=== PATIENT | male | born 1960 | race Caucasian/White ===

== ENCOUNTER → 2019-06-05 13:14 | Outpatient (CLI) | payer OTHER, SELFPAY ==
--- NOTE | 2019-06-05 | DI.US.S_ITS ---
PROCEDURE: US CAROTID DOPPLER BI INDICATIONS: DIPLOPIA TECHNIQUE: Color and pulse Doppler interrogation was performed of both carotid systems, with image documentation and velocity measurements. COMPARISON: None. FINDINGS: Stenosis calculations are based on SRU (S[employer] in Ul[employer]) criteria. Right side: Brachial blood pressure: 122/76 mm Hg. Common carotid artery peak systolic velocity: 87 cm/sec. Internal carotid artery peak systolic velocity: 121 cm/sec. Internal carotid artery end diastolic velocity: 43 cm/sec. External carotid artery peak systolic velocity: 140 cm/sec. ICA/CCA peak systolic ratio: 1.4. Lemus scale imaging description: Mild scattered plaque. Percent internal carotid artery stenosis: Less than 50%. Vertebral artery: Flow direction is antegrade. Left side: Brachial blood pressure: 134/77 mm Hg. Common carotid artery peak systolic velocity: 93 cm/sec. Internal carotid artery peak systolic velocity: 112 cm/sec. Internal carotid artery end diastolic velocity: 27 cm/sec. External carotid artery peak systolic velocity: 106 cm/sec. ICA/CCA peak systolic ratio: 1.2. Lemus scale imaging description: The scattered plaque. Percent internal carotid artery stenosis: Less than 50%. Vertebral artery: Flow direction is antegrade. IMPRESSION: Less than 50% bilateral internal carotid artery stenosis. Dictated by: Zack Maya [facility] Interpreted: Tiffany Lopez MD on 06/05/2019 at 14:57 Approved by: Tiffany Lopez M.D. on 06/05/2019 at 17:24
== END ==
PROVIDERS: PCP Nurse Practitioner Family; Visit Provider Nurse Practitioner Family
DX: H53.2 Diplopia (principal); I65.23 Occlusion and stenosis of bilateral carotid arteries
CPT/HCPCS: 93880

== ENCOUNTER → 2023-07-27 08:00 | Outpatient (CLI) | payer OTHER, SELFPAY | PROVIDERS: Family Provider Student in an Organized Health Care Education/Training Program; PCP Student in an Organized Health Care Education/Training Program; Referring Provider Student in an Organized Health Care Education/Training Program; Visit Provider Student in an Organized Health Care Education/Training Program | DX: R20.2 Paresthesia of skin (principal) | CPT/HCPCS: 95886; 95910 ==